=== PATIENT | male | born 1965 | race Caucasian/White ===

== ENCOUNTER → 2017-12-18 | Outpatient (CLI) | payer MEDICAID | LOC: FIMAGING 10:00 | PROVIDERS: ATTEND Internal Medicine | DX: M23.221 Derangement of posterior horn of medial meniscus due to old tear or injury, right knee (principal); M23.222 Derangement of posterior horn of medial meniscus due to old tear or injury, left knee; M24.10 Other articular cartilage disorders, unspecified site; M25.461 Effusion, right knee; M25.462 Effusion, left knee; M67.462 Ganglion, left knee ==

== ENCOUNTER 2018-07-14 13:03 | Outpatient (CLI) | payer MEDICAID | END 2018-08-23 | LOC: CIMAGING 13:03 ==